=== PATIENT | female | born 1935 | race Caucasian/White ===

== ENCOUNTER 2017-09-13 06:56 | Day surgery (SDC) | payer OTHER, MEDICARE ==
[2017-09-13] MEDS ORDERED: D5 LR 1000 ML 1,000 ML IV ONE (07:06)
[2017-09-13] MEDS ORDERED: DIPRIVAN VIAL 20 ML ONE (08:35)
[2017-09-13] MEDS ORDERED: XYLOCAINE 2 % (PLAIN) ONE (08:35)
[2017-09-13 09:31] VITALS: BP 116/60
== END 2017-09-13 09:25 | disposition home or self-care (01) ==
LOC: SURG1 06:56
PROVIDERS: ATTEND Internal Medicine Gastroenterology
PROC: 0DJD8ZZ Inspection of Lower Intestinal Tract, Via Natural or Artificial Opening Endoscopic (ICD-10-PCS; principal; 2017-09-13 08:15)
PROC: 0DBM8ZX Excision of Descending Colon, Via Natural or Artificial Opening Endoscopic, Diagnostic (ICD-10-PCS; principal; 2017-09-13 08:15)
DX: R10.31 Right lower quadrant pain (principal); R10.32 Left lower quadrant pain; R19.4 Change in bowel habit; K57.30 Diverticulosis of large intestine without perforation or abscess without bleeding; K63.5 Polyp of colon; K64.0 First degree hemorrhoids; Z86.010 Personal history of colon polyps
CPT/HCPCS: 99100; A4217; J2001; J3490; J7120